=== PATIENT | female | born 1955 | race Caucasian/White ===

== ENCOUNTER → 2022-03-09 | Day surgery (SDC) | payer MEDICARE, OTHER ==
[~2022-03-09] VITALS: Ht 158.8 cm; Wt 103.0 kg
[~2022-03-09] MED LIST: ACETAMINOPHEN500 M1 PO; ALENDRONATE SOD70 MG PO; AMLODIPINE BESYL5 MG PO; ASPIRIN EC81 MG PO; CLONAZEPAM0.5 MG PO; COLACE100 MG PO; FLUTICASONE PRO16 GM; FOLIC ACID1 M1 PO; GABAPENTIN600 MG PO; GEMTESA75 MG PO; HYDROCODON-ACE1 EAC6 PO; LAMOTRIGINE150 MG PO; LOSARTAN POTASS50 MG PO; MELOXICAM15 MG PO; METFORMIN HCL500 M3 PO; MONTELUKAST SOD10 MG PO; MOTRIN600 MG PO; NORTRIPTYLINE H10 MG PO; OMEPRAZOLE 20MG20 MG PO; OXY-IR 5MG5 MG PO; PROPRANOLOL HCL20 MG PO; VENTOLIN HFA18 GM INH; VICODIN 10/3251 EACH PO; ZIPRASIDONE HCL80 MG PO
[2022-03-09 09:56] LABS: BUN/CREAT RATIO (CALC) 27.5 RATIO; CREATININE 0.8 mg/dL (0.51-0.95); POTASSIUM 4.5 mmol/L (3.5-5.1)
== END | disposition home or self-care (01) ==
LOC: FAS 08:53
PROVIDERS: Anesthesiology
DX: C50.912 Malignant neoplasm of unspecified site of left female breast (principal); C77.3 Secondary and unspecified malignant neoplasm of axilla and upper limb lymph nodes; M06.9 Rheumatoid arthritis, unspecified; J44.9 Chronic obstructive pulmonary disease, unspecified; I10 Essential (primary) hypertension; E11.9 Type 2 diabetes mellitus without complications; K21.9 Gastro-esophageal reflux disease without esophagitis; F17.210 Nicotine dependence, cigarettes, uncomplicated; E66.9 Obesity, unspecified; Z68.41 Body mass index [BMI] 40.0-44.9, adult; Z17.0 Estrogen receptor positive status [ER+]; Z88.0 Allergy status to penicillin; Z88.2 Allergy status to sulfonamides; Z79.82 Long term (current) use of aspirin
CPT/HCPCS: 36415; 76098; 80048; 82962; A9541; J0360; J1170; J1644; J2250; J2704; J3010; J3370; J7050; J7120; Q9968

== ENCOUNTER 2022-03-24 11:43 | Day surgery (SDCO) | payer MEDICARE, OTHER ==
[~2022-03-24] VITALS: Ht 157.5 cm; Wt 105.0 kg
[2022-03-24 13:44] LABS: BASOPHIL 0.6 % (0-2); EOSINOPHIL 2.1 % (0-7); HCT 48.6 % (37.0-47.0); HGB 15.2 g/dl (12.5-16.0); MCH 29.8 pg (25.0-31.0); MCHC 31.3 g/dL (32.0-36.0); MCV 95.3 fL (78.0-100.0); MONOCYTE 8.3 % (0-12); MPV 10.9 fL (6.0-9.5); NEUTROPHIL 56.7 % (41-80); NRBC 0; PLT 235 K/uL (150-400); RDW 13.6 % (11.5-14.0)
[2022-03-24 14:00] LABS: IRON % SATURATION 19.7 %SAT (20-50)
[2022-03-24 14:11] LABS: BILIRUBIN - TOTAL 0.2 mg/dL (0.2-1.0); BUN/CREAT RATIO (CALC) 21.2 RATIO; C-REACTIVE PROTEIN 0.8 mg/dL (<=0.90); CREATININE 1.13 mg/dL (0.51-0.95); MAGNESIUM 2.1 mg/dL (1.8-2.4); POTASSIUM 4.7 mmol/L (3.5-5.1)
[2022-03-24 14:35] LABS: LACTIC ACID 1.6 mmol/L (0.4-1.9)
[2022-03-24 15:08] LABS: INR 0.97 (0.9-1.2); PROTHROMBIN TIME 12.3 SECONDS (11.8-13.4); PTT 27.6 SECONDS (24.4-34.7)
[2022-03-24 17:49] LABS: BILIRUBIN NEGATIVE (NEGATIVE); BLOOD NEGATIVE Ery/uL (NEGATIVE); CLARITY CLEAR (CLEAR); COLOR YELLOW (YELLOW); GLUCOSE (U) NORMAL (NORMAL); LEUKOCYTES NEGATIVE Leu/uL (NEGATIVE); NITRITE NEGATIVE (NEGATIVE); PROTEIN NEGATIVE (NEGATIVE); UROBILINOGEN 0.2 mg/dL (0.2-1.0); pH 6.5 (5.0-9.0)
[2022-03-24] MEDS ORDERED: MIRALAX17 GM PO (21:37)
[2022-03-24] MEDS ORDERED: ROBAXIN500 MG PO (21:41)
[2022-03-25 05:56] LABS: BASOPHIL 0.4 % (0-2); EOSINOPHIL 2.8 % (0-7); HGB 14.8 g/dl (12.5-16.0); LYMPHOCYTE 38.9 % (15-48); MCH 29.7 pg (25.0-31.0); MCHC 30.8 g/dL (32.0-36.0); MCV 96.4 fL (78.0-100.0); MONOCYTE 8.4 % (0-12); MPV 10.7 fL (6.0-9.5); NEUTROPHIL 49.3 % (41-80); NRBC 0; PLT 189 K/uL (150-400); RBC 4.98 M/uL (4.20-5.40); RDW 13.9 % (11.5-14.0); WBC 10.8 K/uL (4.0-10.5)
[2022-03-25 06:37] LABS: BUN/CREAT RATIO (CALC) 27.6 RATIO; CREATININE 0.87 mg/dL (0.51-0.95); POTASSIUM 4.6 mmol/L (3.5-5.1)
== END 2022-03-25 15:05 | disposition home health service (06) ==
LOC: FER 11:43 → FTCU 18:14
PROVIDERS: Emergency Medicine; Nurse Practitioner Acute Care; ADMIT Internal Medicine
DX: I95.89 Other hypotension (principal); R00.1 Bradycardia, unspecified; R55 Syncope and collapse; R42 Dizziness and giddiness; I12.9 Hypertensive chronic kidney disease with stage 1 through stage 4 chronic kidney disease, or unspecified chronic kidney disease; E11.22 Type 2 diabetes mellitus with diabetic chronic kidney disease; E11.65 Type 2 diabetes mellitus with hyperglycemia; N18.2 Chronic kidney disease, stage 2 (mild); N17.9 Acute kidney failure, unspecified; C50.912 Malignant neoplasm of unspecified site of left female breast; J44.9 Chronic obstructive pulmonary disease, unspecified; J96.11 Chronic respiratory failure with hypoxia; R77.8 Other specified abnormalities of plasma proteins; D72.829 Elevated white blood cell count, unspecified; F41.9 Anxiety disorder, unspecified; F32.A Depression, unspecified; G47.30 Sleep apnea, unspecified; F17.210 Nicotine dependence, cigarettes, uncomplicated; E66.01 Morbid (severe) obesity due to excess calories; F43.10 Post-traumatic stress disorder, unspecified; F20.9 Schizophrenia, unspecified; G89.29 Other chronic pain; M54.9 Dorsalgia, unspecified; K21.9 Gastro-esophageal reflux disease without esophagitis; Z90.12 Acquired absence of left breast and nipple; Z99.81 Dependence on supplemental oxygen; Z68.41 Body mass index [BMI] 40.0-44.9, adult; Z88.0 Allergy status to penicillin; Z88.2 Allergy status to sulfonamides; Z79.82 Long term (current) use of aspirin; Z79.84 Long term (current) use of oral hypoglycemic drugs; Z79.899 Other long term (current) drug therapy
CPT/HCPCS: 36415; 80048; 80053; 81003; 82728; 82962; 83036; 83540; 83550; 83605; 83735; 83880; 84145; 84439; 84443; 84484; 85025; 85610; 85730; 86140; 93005; 94010; 94640; G0378; J7030

== ENCOUNTER 2022-04-17 11:54 | Emergency (ER) | payer MEDICARE, OTHER ==
[~2022-04-17 11:54] MED LIST changes: +MIRALAX17 GM PO; +ROBAXIN500 MG PO
[2022-04-17 14:06] LABS: BASOPHIL 0.6 % (0-2); EOSINOPHIL 2.3 % (0-7); HCT 50.4 % (37.0-47.0); LYMPHOCYTE 34.1 % (15-48); MCH 29.7 pg (25.0-31.0); MCHC 31.7 g/dL (32.0-36.0); MCV 93.7 fL (78.0-100.0); MONOCYTE 9.9 % (0-12); MPV 10.5 fL (6.0-9.5); NEUTROPHIL 52.8 % (41-80); NRBC 0; PLT 205 K/uL (150-400); RBC 5.38 M/uL (4.20-5.40); RDW 14.1 % (11.5-14.0); WBC 10.8 K/uL (4.0-10.5)
[2022-04-17 14:31] LABS: ALBUMIN 3.2 g/dL (3.4-5.0); BILIRUBIN - TOTAL 0.2 mg/dL (0.2-1.0); CREATININE 0.93 mg/dL (0.51-0.95); GLOBULIN (CALCULATION) 4.2 g/dL; POTASSIUM 4.4 mmol/L (3.5-5.1); TOTAL PROTEIN 7.4 g/dL (6.4-8.2)
[2022-04-17 15:38] LABS: BILIRUBIN NEGATIVE (NEGATIVE); BLOOD NEGATIVE Ery/uL (NEGATIVE); CLARITY CLEAR (CLEAR); COLOR YELLOW (YELLOW); GLUCOSE (U) NORMAL (NORMAL); LEUKOCYTES NEGATIVE Leu/uL (NEGATIVE); NITRITE NEGATIVE (NEGATIVE); PROTEIN NEGATIVE (NEGATIVE); SPECIFIC GRAVITY 1.025 (1.001-1.030); UROBILINOGEN 0.2 mg/dL (0.2-1.0)
[2022-04-17] MEDS ORDERED: CLEOCIN300 MG PO (15:45)
== END 2022-04-17 16:06 | disposition home or self-care (01) ==
LOC: FER 11:54
PROVIDERS: Nurse Practitioner Family
DX: N61.0 Mastitis without abscess (principal); E11.9 Type 2 diabetes mellitus without complications; F17.210 Nicotine dependence, cigarettes, uncomplicated; Z88.0 Allergy status to penicillin; Z88.2 Allergy status to sulfonamides
CPT/HCPCS: 36415; 80053; 81003; 83605; 84145; 85025; 87040; 87070; 87205; 99283

== ENCOUNTER 2022-05-30 11:24 | Emergency (ER) | payer MEDICARE, OTHER ==
[~2022-05-30 11:24] MED LIST changes: +CLEOCIN300 MG PO
== END 2022-05-30 15:38 | disposition home or self-care (01) ==
LOC: FER 11:24
DX: M79.605 Pain in left leg (principal); I10 Essential (primary) hypertension; J44.9 Chronic obstructive pulmonary disease, unspecified; E11.9 Type 2 diabetes mellitus without complications; Z88.0 Allergy status to penicillin; Z88.2 Allergy status to sulfonamides; Z79.84 Long term (current) use of oral hypoglycemic drugs; Z79.82 Long term (current) use of aspirin; Z79.899 Other long term (current) drug therapy